=== PATIENT | male | born 1970 | race American Indian/Alaskan Native ===

== ENCOUNTER 2017-02-19 05:04 | Emergency (ER) | payer OTHER ==
[2017-02-19 05:30] VITALS: BP 141/87; PULSE 62; RESP 18; TEMP 98.4; O2SAT 99; BMI 28.3
--- NOTE | 2017-02-19 05:54 | ED PDOC ---
Arrival/HPI - General Chief Complaint: Upper Extremity Problem/Injury Time Seen by Provider: 02/19/17 05:06 Historian: Patient - History of Present Illness Narrative History of Present Illness (Text): 02/19/17 05:50 Randy Talley is a 47 year old male who presents to the emergency department for evaluation of 2 day duration of swelling and pain to right 3rd digit. Patient reports that he bites his nails, but does not recall any possible sources of infection. Denies any numbness or weakness to the digit. Denies any fever, chills, purulent discharge, limited ROM or any other complaints at this time. Time/Duration: < week (2 days ) Symptom Onset: Gradual Symptom Course: Worsening Severity Level: Mild Activities at Onset: Light Past Medical History - Provider Review Nursing Documentation Reviewed: Yes - Psychiatric Hx Substance Use: No - Anesthesia Hx Anesthesia: No Family/Social History - Physician Review Nursing Documentation Reviewed: Yes Family/Social History: No Known Family HX Smoking Status: Never Smoked Hx Alcohol Use: No Hx Substance Use: No Allergies/Home Meds Allergies/Adverse Reactions: Allergies No Known Allergies Allergy (Verified 02/19/17 05:28) Home Medications: Home Meds Medication Instructions Recorded Confirmed No Known Home Med 02/19/17 02/19/17 Review of Systems - Physician Review All systems were reviewed & negative as marked: Yes - Review of Systems Constitutional: Normal. absent: Fatigue, Fevers Respiratory: Normal. absent: SOB, Cough Cardiovascular: Normal. absent: Chest Pain Musculoskeletal: Other (right 3rd digit ) Neurological: Normal. absent: Headache, Dizziness Psychiatric: Normal Physical Exam Vital Signs Reviewed: Yes Vital Signs Temp Pulse Resp BP Pulse Ox 02/19/17 05:29 98.4 F 62 18 141/87 99 Temperature: Afebrile Blood Pressure: Normal Pulse: Regular Respiratory Rate: Normal Appearance: Positive for: Well-Appearing, Non-Toxic, Comfortable Pain Distress: None Mental Status: Positive for: Alert and Oriented X 3 - Systems Exam Head: Present: Atraumatic, Normocephalic Pupils: Present: PERRL Conjunctiva: Present: Normal Cardiovascular: Present: Regular Rate and Rhythm, Normal S1, S2 Upper Extremity: Present: Neurovascularly Intact, Other (swelling to distal right 3rd digit, lateral aspect of nail bed. ). No: Cyanosis, Edema Lower Extremity: Present: Normal Inspection. No: Edema Neurological: Present: GCS=15, CN II-XII Intact, Speech Normal Skin: Present: Warm, Dry, Normal Color. No: Rashes Psychiatric: Present: Alert, Oriented x 3, Normal Insight, Normal Concentration Medical Decision Making ED Course and Treatment: Progress Notes: Procedure: Incision & Drainage Performed by the emergency provider Indication: Abscess Location: distal right middle finger Preparation: The area was prepped and draped in the usual sterile fashion. digital block w bupivacaine was used for anesthesia. Procedure: The most fluctuant portion of the abscess was incised with a #11 scalpel. Purulent drainage expressed. A dressing was applied Post-Procedure: The patient tolerated the procedure well, and there were no complications. - Scribe Statement The provider has reviewed the documentation as recorded by the Cande Garcia Provider Attestation: All medical record entries made by the Sarahiblyndon were at my direction and personally dictated by me. I have reviewed the chart and agree that the record accurately reflects my personal performance of the history, physical exam, medical decision making, and the department course for this patient. I have also personally directed, reviewed, and agree with the discharge instructions and disposition. Disposition/Present on Arrival - Present on Arrival Any Indicators Present on Arrival: No History of DVT/PE: No History of Uncontrolled Diabetes: No Urinary Catheter: No History of Decub. Ulcer: No History Surgical Site Infection Following: None - Disposition Have Diagnosis and Disposition been Completed?: Yes Diagnosis: Paronychia Disposition: HOME/ ROUTINE Disposition Time: 06:14 Condition: IMPROVED
== END 2017-02-19 06:30 | disposition home or self-care (01) ==
LOC: ED 05:04
DX: L03.011 Cellulitis of right finger (principal)